=== PATIENT | male | born 1960 | race Caucasian/White ===

== ENCOUNTER 2024-12-22 09:26 | Emergency (ER) | payer OTHER ==
[~2024-12-22] VITALS: Ht 157.5 cm; Wt 115.0 kg
[2024-12-22 09:58] VITALS: TEMP 36.5; O2SAT 99
[2024-12-22] MEDS: IBUPROFEN 600MG TABLET PO ONE (10:11)
[2024-12-22] MEDS ORDERED: IBUP-1455 MT (11:22)
[2024-12-22 12:04] VITALS: BP 147/86; PULSE 71; RESP 18; O2SAT 99
== END 2024-12-22 12:18 | disposition home or self-care (01) ==
LOC: EDBD 09:26 → ER 09:26
DX: M25.561 Pain in right knee (principal); M17.11 Unilateral primary osteoarthritis, right knee; Z88.0 Allergy status to penicillin; W01.0XXA Fall on same level from slipping, tripping and stumbling without subsequent striking against object, initial encounter; Y93.89 Activity, other specified; Y92.89 Other specified places as the place of occurrence of the external cause; Y99.8 Other external cause status
CPT/HCPCS: 29505; 73562; 99283